=== PATIENT | male | born 1950 | race African-American/Black ===

== ENCOUNTER → 2016-10-25 | Outpatient (CLI) | payer BC ==
[~2016-10-25] MED LIST: FLONASE16 GM; LOTREL PO
--- NOTE | ~2016-10-25 | TH ---
Unit #: [id number] #: [id number] Patient: SOLE ARORA V [id number] [address] [address] [id number] O MR#: [id number] NAME: SOLE ARORA V. : 1950 SEX: M STUDY DATE/TIME: 10/25/2016 UNIT: [facility] ROOM: STUDY DESCRIPTION: Stress test Attending Physician: Binh Lee M.D. Referring Physician: Binh Lee M.D. Primary Care Physician: Binh Lee M.D. CARDIOLOGY REPORT PROCEDURE PERFORMED Nuclear and ECG portions of stress test. INDICATION Chest discomfort. SUMMARY The patient underwent nuclear stress test. Received a resting dose of 12 mCi and a stress dose of 35.9 mCi. On gated imaging the patient appears to have normal wall motion with a preserved ejection fraction. The patient's LVEF is 58%. On perfusion imaging, comparing rest and stress imaging, there appears to be no reversible perfusion defects. CONCLUSIONS 1. No obvious ischemia. 2. Preserved ejection fraction. 3. ECG portion dictated below. ECG SUMMARY The patient exercised for 7 minutes and 52 seconds on Willie protocol. The patient achieved a work level of 9.8 METS. The patient's resting heart rate is 75 beats per minute, which increased to 139 beats per minute, representing 89% of the maximum age-predicted heart rate. The patient's resting blood pressure is 138/89 mmHg, which increased to 171/90 mmHg. The patient's resting ECG shows normal sinus rhythm with normal ST segments. The patient's stress ECG shows normal sinus rhythm with nonspecific ST segment changes, not meeting ischemic threshold. There is no ventricular or supraventricular ectopy noted. There are no pauses noted. STRESS ECG CONCLUSION 1. Negative ECG portion of the Cardiolite stress test for ischemia. 2. Fair exercise tolerance. 3. Normal blood pressure and heart rate response to exercise. 4. Perfusion imaging dictated above. Dictated by... Terrell Chow M.D. Unit #: [id number] #: [id number] Patient: SOLE ARORA V FL/db TD: 10/25/2016 16:11 JOB #: [id number] CARDIOLOGY REPORT Page 1 of 1 X TERRELL CHOW MD CARDIOLOGY REPORT
== END | disposition home or self-care (01) ==
LOC: CNUC 06:42
DX: R07.89 Other chest pain (principal)
CPT/HCPCS: 78452; 93017; A9500